=== PATIENT | female | born 1945 | race Caucasian/White ===

== ENCOUNTER 2018-05-08 19:20 | Inpatient (IN) | payer MEDICARE, OTHER ==
[~2018-05-08] VITALS: Ht 160 cm; Wt 58.4 kg
[~2018-05-08 19:20] MED LIST: ASPIR 8181 MG PO; CLONAZEPAM 0.50.5 M1 PO; CLONIDINE0.1 PO; COUMADIN 5 MG TA5 M1 PO; DILTIAZEM 24HR180 M2 PO; FISH OIL 1,001000 M2 PO; GABAPENTIN600 M1 PO; HYDROCODONE-AP1 EAC6 PO; HYDROXYCHLOROQ200 M1 PO; IBUPROFEN 200200 M1 PO; LISINOPRIL/HCTZ PO; MAGNESIUM OXID400 MG PO; NORCO 5-325 TA1 EACH PO; OXYCODONE PO; PERCOCET 5-3251 EACH PO; PERCOCET PO; PREDNISONE 2.52.5 M1 PO; PREDNISONE 5 MG5 M1 PO; ROBAXIN 750 MG750 M1 PO; VITAMIN B12-FO1 EAC1 PO; VITAMIN D31000 UNI2 PO; XARELTO15 MG PO; XARELTO20 MG PO; [UNRECOGNIZED DRUG - OTHER] PO
[2018-05-08 19:52] VITALS: BP 111/77
[2018-05-08 21:02] LABS: ABSOLUTE BASOPHILS 0.1 thou/uL (0.0-0.2); ABSOLUTE EOSINOPHILS 0.1 thou/uL (0.0-0.7); ABSOLUTE LYMPHOCYTES 1.2 thou/uL (0.8-5.3); ABSOLUTE MONOCYTES 0.6 thou/uL (0.0-1.2); ABSOLUTE NEUTROPHILS 9.1 thou/uL (1.6-8.1); BASOPHILS 0.9 %; EOSINOPHILS 0.7 %; HEMATOCRIT 39.1 % (37.0-47.0); HEMOGLOBIN 13.5 gm/dL (12.0-15.0); LYMPHOCYTES 10.7 %; MCH 32.8 pg (26.0-34.0); MCHC 34.4 g/dL (28.0-37.0); MCV 95.4 fL (80.0-100.0); MONOCYTES 5.4 %; NUCLEATED RBCS 0 /100WBC; PLATELET COUNT* 173 thou/uL (150-400); POLYS 82.3 %; RDW-CV 13.9 % (10.5-14.5)
[2018-05-08 21:08] LABS: ANION GAP 8 mmol/L (7-16); BUN 16 mg/dL (7-18); CALCIUM 9.3 mg/dL (8.5-10.1); CHLORIDE 102 mmol/L (98-107); CO2 29 mmol/L (21-32); GLUCOSE 118 mg/dL (70-99); POTASSIUM 4.3 mmol/L (3.5-5.1); SODIUM 139 mmol/L (136-145)
[2018-05-08 21:20] LABS: ALBUMIN 3.3 g/dL (3.4-5.0); ALKALINE PHOSPHATASE 93 U/L (46-116); SGOT 23 U/L (15-37); SGPT 22 U/L (30-65); TOTAL BILIRUBIN 0.3 mg/dL (<0.1-1.0); TOTAL PROTEIN 6.8 g/dL (6.4-8.2); TROPONIN-I LEVEL <0.06 ng/mL (<0.06)
[2018-05-08 22:54] LABS: URINE BILIRUBIN NEGATIVE (Negative); URINE BLOOD NEGATIVE (Negative); URINE CLARITY CLEAR; URINE COLOR YELLOW; URINE GLUCOSE-RANDOM NEGATIVE (Negative); URINE KETONES NEGATIVE (Negative); URINE LEUKOCYTES-REFLEX NEGATIVE (Negative); URINE NITRITE-REFLEX NEGATIVE (Negative); URINE PROTEIN NEGATIVE (Negative); URINE UROBILINOGEN 0.2 E.U./dl (0.2-1.0)
[2018-05-08 23:49] LABS: APTT 30.4 Seconds (25.0-31.3); PROTIME 10.6 Seconds (9.20-11.50)
[2018-05-09] VITALS (7 sets, daily range): BP systolic 95–137; BP diastolic 47–68
[2018-05-09] MEDS ORDERED: LISINOPRIL20 MG PO (11:14)
[2018-05-09] MEDS ORDERED: VALIUM5 MG PO (11:15)
[2018-05-10] VITALS: BP 109/61
[2018-05-10 04:53] VITALS: BP 103/55
[2018-05-10 04:54] LABS: CALCIUM 8.6 mg/dL (8.5-10.1); CREATININE 0.7 mg/dL (0.6-1.3); POTASSIUM 3.7 mmol/L (3.5-5.1)
[2018-05-10 05:04] LABS: HEMATOCRIT 32.4 % (37.0-47.0); MCH 32.7 pg (26.0-34.0); MCV 96.1 fL (80.0-100.0); MPV 9.4 fl. (7.2-11.1); RBC 3.37 mil/uL (4.20-5.00); RDW-CV 14.4 % (10.5-14.5); WBC 6.7 thou/uL (4.0-11.0)
[2018-05-10 07:30] VITALS: BP 115/66
[2018-05-10] MEDS ORDERED: XARELTO20 MG PO (07:45)
[2018-05-10] MEDS ORDERED: XARELTO15 MG PO (07:45)
[2018-05-10] MEDS ORDERED: NORCO 5-325 TA1 EACH PO (07:49)
[2018-05-10 11:09] VITALS: BP 115/66
--- NOTE | 2018-05-10 14:47 | EKG ---
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1945 Requested By: Eliane Malagon Order Number: [id number] MD: Fahad Varner Measurements Intervals [place] Rate: 78 P: -1 GA: 124 QRS: 1 QRSD: 97 T: 114 QT: 380 QTc: 433 Interpretive Statements Sinus rhythm Nonspecific T abnormalities, lateral leads Compared to ECG 11/02/2015 12:14:23 T-wave abnormality now present Electronically Signed On 05-10-2018 14:47:35 KNOT TIER by Fahad Varner [email or web address] <ELECTRONICALLY SIGNED> By: Fahad Varner MD, [facility] 05/10/18 1447 2353 2353 Fahad Varner MD, [facility] /EPI
== END 2018-05-10 12:27 | disposition home or self-care (01) | DRG 300 ==
LOC: M.ERS 19:20 → M.2W 22:57 → M.TBA-ER 22:57 → M.2W 05-09 00:04
PROVIDERS: Internal Medicine; Physician Assistant; ADMIT Internal Medicine
DX: I82.411 Acute embolism and thrombosis of right femoral vein (principal); E44.1 Mild protein-calorie malnutrition; D68.59 Other primary thrombophilia; I82.431 Acute embolism and thrombosis of right popliteal vein; G43.909 Migraine, unspecified, not intractable, without status migrainosus; M32.9 Systemic lupus erythematosus, unspecified; I25.10 Atherosclerotic heart disease of native coronary artery without angina pectoris; I73.9 Peripheral vascular disease, unspecified; I12.9 Hypertensive chronic kidney disease with stage 1 through stage 4 chronic kidney disease, or unspecified chronic kidney disease; N18.2 Chronic kidney disease, stage 2 (mild); M81.0 Age-related osteoporosis without current pathological fracture; Z90.49 Acquired absence of other specified parts of digestive tract; I25.2 Old myocardial infarction; Z95.5 Presence of coronary angioplasty implant and graft; Z88.2 Allergy status to sulfonamides; Z91.040 Latex allergy status; Z82.49 Family history of ischemic heart disease and other diseases of the circulatory system; Z68.22 Body mass index [BMI] 22.0-22.9, adult; Z86.711 Personal history of pulmonary embolism; Z87.81 Personal history of (healed) traumatic fracture

== ENCOUNTER → 2018-06-24 | Outpatient (CLI) | payer MEDICARE, OTHER ==
[~2018-06-24] MED LIST changes: +LISINOPRIL20 MG PO; +VALIUM5 MG PO
== END ==
LOC: M.ULTRA 09:29
DX: M79.604 Pain in right leg (principal)

== ENCOUNTER → 2018-12-02 | Outpatient (CLI) | payer MEDICARE, OTHER | LOC: M.RAD 15:21 | DX: M48.54XA Collapsed vertebra, not elsewhere classified, thoracic region, initial encounter for fracture (principal); M41.85 Other forms of scoliosis, thoracolumbar region; M48.02 Spinal stenosis, cervical region; Z88.2 Allergy status to sulfonamides ==

== ENCOUNTER → 2018-12-06 | Outpatient (CLI) | payer MEDICARE, OTHER | LOC: M.ULTRA 08:00 | DX: K80.20 Calculus of gallbladder without cholecystitis without obstruction (principal); R16.0 Hepatomegaly, not elsewhere classified ==

== ENCOUNTER 2018-12-09 12:42 | Inpatient (IN) | payer MEDICARE, OTHER ==
[~2018-12-09] VITALS: Ht 144.8 cm; Wt 59.0 kg
--- NOTE | ~2018-12-09 | PROC ---
[address] [address] PROCEDURE REPORT Name: SARAH CAMPBELL Room: [address] IN .R.#: [id number] Admission: 12/09/18 Attend Phys: Yfn Jimenez MD Discharge: 12/16/18 Date of : 47 Report #: [id number] THIS REPORT FOR: //name// For GI report, please see the Provation report in Perceptive 7 content. By: 1150Medical Records Staff INGE /DANITA
--- NOTE | ~2018-12-09 | CON ---
[address] [address] CONSULTATION Name: SARAH CAMPBELL Room: [address] IN .R.#: [id number] Admission: 12/09/18 Attend Phys: Yfn Jimenez MD Discharge: Date of : 47 Report #: [id number] THIS REPORT FOR: //name// CC: Yfn Bishop MD DICTATED BY: Kayla Phan [facility] DATE OF SERVICE: 12/10/2018 Please note at the time of this dictation, the patient was seen and physically examined by myself. REASON FOR CONSULTATION: Abdominal pain and change in bowel habits. HISTORY OF PRESENT ILLNESS: This is a pleasant 73-year-old female who presented to her PCP's office with increasing upper and lower abdominal pain and cramping associated with "yellow watery" diarrhea for the last 2 weeks, which was worsening in the amount that she was going prior to that. She states that she had a tendency towards constipation and had to take some magnesium for that, otherwise her bowels were soft and formed up until 2 weeks ago. She was also having some pain in her rectum when having a bowel movement as well, which she rated a 9/10. She does have a history of having a colonoscopy back in 2004 when she was told that she had colon polyps and had never had one since that time either. She also describes that she has had, over the last year, increased incidence of acid reflux which she has been taking Tums mainly at night for. Her last EGD was back in 2006 prior to her hiatal hernia repair. Otherwise, she denies any fevers or chills, any weight changes, recent travel, or any sick contacts and that her weight has been fairly stable. She does take prednisone, which has increased her appetite. ALLERGIES: LATEX AND SULFA. MEDICATIONS: From home include Plaquenil, vitamin D3, potassium, vitamin B12, prednisone, lisinopril, Xarelto, Valium, and hydrocodone. PAST MEDICAL HISTORY: History of heart disease, DE, CAD, hypertension, lung disease, history of a PE with pulmonary infarct, vascular disease, peripheral vascular disease, venous insufficiency, history of DVT, and lupus, in which she sees a clerical methods analyst. She has had a right lower extremity PE, right lung with infarct and developed some pancreatitis. History of her DE and colon polyps. She has had acid reflux, osteoporosis, lupus, and migraines. She has had sacral and pelvic fractures and also her L spine vertebral fractures [place] [address] CONSULTATION Name: SARAH CAMPBELL Room: [address] IN [facility]#: [id number] Admission: 12/09/18 Attend Phys: Yfn Jimenez MD Discharge: Date of : 47 Report #: [id number] PAST SURGICAL HISTORY: Bilateral rotator cuff repair, coronary artery stenting x 2, appendectomy, tonsil and adenoidectomy, angioplasty, hiatal hernia repair in 2006, and her history of EGD and colonoscopy in the past. FAMILY HISTORY: Negative for any GI or female cancers. SOCIAL HISTORY: Denies any alcohol, tobacco, or illegal drug use. REVIEW OF SYSTEMS: Twelve-point review of systems is essentially negative except what is mentioned in the history of present illness. PHYSICAL EXAMINATION: VITAL SIGNS: Temperature 36.9, pulse 70, respirations 14, and blood pressure 163/83. HEART: Regular rate and rhythm. LUNGS: Clear. ABDOMEN: Soft, positive bowel sounds in all 4 quadrants, somewhat hyperactive with diffuse tenderness noted throughout, more so in the right upper quadrant after her recent liver biopsy this a.m. LABORATORY DATA: Hemoglobin is 12.7, white count is 11.7, and platelets 236. PT is 12.1 and INR is 1.2. GFR is 98. Total bilirubin 0.4, alkaline phosphatase 119, ALT 30, and AST is 28. CA-125 is 56.6. Rest labs are pending. RADIOLOGIC DATA: CT of the abdomen and pelvis shows hepatic lesions scattered likely metastatic in nature, also periaortic, lashon hepatis, right lower quadrant mesenteric lymphadenopathy noted. IMPRESSION: 1. Abdominal pain. 2. Change in bowel habits. 3. Abnormal CT noted liver lesions and some mesenteric lymphadenopathy in the right lower quadrant. 4. Gastroesophageal reflux disease, ongoing for the last year. 5. History of colon polyps, 2004. 6. Anticoagulant therapy, Xarelto, history of deep vein thrombosis and pulmonary embolism. PLAN: 1. EGD and colonoscopy with Dr. Carvalho tomorrow. 2. Clear liquid diet. 3. Status post liver biopsy today. 4. Xarelto continues to be on hold, last dose was Sunday. 5. Further recommendations to be made once the procedure [place] [address] CONSULTATION Name: MINOR,SARAH LITTLEA Room: [address] IN [facility].#: [id number] Admission: 12/09/18 Attend Phys: Yfn Jimenez MD Discharge: Date of : 47 Report #: [id number] Thank you for allowing us to participate in this patient's care. Please do not hesitate to call with any questions in regard to this consult. By: 1111 215Fernando Carvalho DO /adelina
[2018-12-09 12:52] VITALS: BP 174/93
[2018-12-09 13:45] LABS: MCH 32.5 pg (26.0-34.0); MCHC 34.3 g/dL (28.0-37.0); MCV 94.7 fL (80.0-100.0); MPV 8.7 fl. (7.2-11.1); NUCLEATED RBCS 0 /100WBC; PLATELET COUNT* 251 thou/uL (150-400); RBC 4.33 mil/uL (4.20-5.00); WBC 13.9 thou/uL (4.0-11.0)
[2018-12-09 13:53] LABS: ANION GAP 10 mmol/L (7-16); BUN 24 mg/dL (7-18); CALCIUM 8.8 mg/dL (8.5-10.1); CHLORIDE 103 mmol/L (98-107); CO2 26 mmol/L (21-32); CREATININE 0.8 mg/dL (0.6-1.3); GLUCOSE 101 mg/dL (70-99); POTASSIUM 3.6 mmol/L (3.5-5.1); SODIUM 139 mmol/L (136-145)
[2018-12-09 13:55] LABS: APTT 45.5 Seconds (25.0-31.3); INR 1.2; PROTIME 12.1 Seconds (9.20-11.50)
[2018-12-09 14:03] LABS: ALKALINE PHOSPHATASE 143 U/L (46-116); LIPASE 180 U/L (73-393); SGOT 32 U/L (15-37); SGPT 35 U/L (30-65); TOTAL BILIRUBIN 0.4 mg/dL (<0.1-1.0); TOTAL PROTEIN 6.5 g/dL (6.4-8.2); TROPONIN-I LEVEL <0.06 ng/mL (<0.06)
[2018-12-09 14:09] LABS: ABSOLUTE LYMPHOCYTES 0.4 thou/uL (0.8-5.3); ABSOLUTE MONOCYTES 0.4 thou/uL (0.0-1.2); ABSOLUTE NEUTROPHILS 13.1 thou/uL (1.6-8.1); PLATELET ESTIMATE ADEQUATE
[2018-12-09 15:20] LABS: URINE BILIRUBIN NEGATIVE (Negative); URINE BLOOD NEGATIVE (Negative); URINE CLARITY CLEAR; URINE COLOR YELLOW; URINE GLUCOSE-RANDOM NEGATIVE (Negative); URINE KETONES NEGATIVE (Negative); URINE LEUKOCYTES-REFLEX NEGATIVE (Negative); URINE NITRITE-REFLEX NEGATIVE (Negative); URINE PROTEIN NEGATIVE (Negative); URINE SPECIFIC GRAVITY <= 1.005 (1.005-1.030); URINE UROBILINOGEN 0.2 E.U./dl (0.2-1.0)
[2018-12-09 15:47] VITALS: BP 148/77
--- NOTE | 2018-12-09 16:25 | EKG ---
[place] [address] ELECTROCARDIOGRAM REPORT Name: SARAH CAMPBELL Room: [address] ADM IN ..#: [id number] Admission: 12/09/18 Attend Phys: Yfn Jimenez MD Discharge: Date of : 47 Report #: [id number] THIS REPORT FOR: //name// [facility] ED Test Date: 2018-12-09 Test Time: 14:31:21 Pat Name: SARAH CAMPBELL Department: Room: [facility] Gender: F Pet Handler: : 1945 Requested By: Dea Torres Order Number: [id number] MD: Param Low Measurements Intervals [place] Rate: 82 P: -17 SC: 102 QRS: 0 QRSD: 98 T: 150 QT: 401 QTc: 469 Interpretive Statements Sinus arrhythmia Short SC interval Probable anteroseptal infarct, old Abnormal T, consider ischemia, lateral leads Baseline wander in lead(s) II,III,aVF Compared to ECG 05/08/2018 23:53:49 Short SC interval now present Myocardial infarct finding now present T-wave abnormality still present Electronically Signed On 12-09-2018 16:25:06 CDT by Param Low [email or web address] <ELECTRONICALLY SIGNED> By: Param Low MD, [facility] 12/09/18 1625 1431 1431 Param Low MD, [facility] /EPI
[2018-12-09 16:26] VITALS: BP 182/82
--- NOTE | 2018-12-09 18:03 | NUR ---
REVIEWED STUDENT NURSE CHARTING, AGREE. PT A&Ox4. VITALS STABLE. IV PATENT. NAUSEA CONTROLLED WITH ZOFRAN. MILD PAIN, DENIED PAIN MEDS. UP WITH ASSIST. CALL LIGHT WITHIN REACH. FALL PRECAUTIONS IN PLACE. WILL CONTINUE TO MONITOR.
[2018-12-09 19:45] VITALS: BP 148/72
--- NOTE | 2018-12-09 22:21 | NUR ---
INITAL ASSESMENT COMPLETED AT 194. PT PLEASANT AND COOPERATIVE. PT INCONTINENT OF STOOL AT THAT TIME. PT REPORTED ABDOMINAL PAIN AND MILD NAUSEA. PT GIVEN PRN FENTANYL AND ZOFRAN WITH GOOD RESULTS. CALL LIGHT IN REACH, PT DEMONSTRATES PROPER USE.
[2018-12-10] VITALS (14 sets, daily range): BP systolic 121–184; BP diastolic 51–89
[2018-12-10 04:27] LABS: ABSOLUTE BASOPHILS 0.1 thou/uL (0.0-0.2); ABSOLUTE LYMPHOCYTES 1.2 thou/uL (0.8-5.3); ABSOLUTE MONOCYTES 1.1 thou/uL (0.0-1.2); ABSOLUTE NEUTROPHILS 9.4 thou/uL (1.6-8.1); BASOPHILS 0.5 %; EOSINOPHILS 0.4 %; HEMATOCRIT 37.6 % (37.0-47.0); HEMOGLOBIN 12.7 gm/dL (12.0-15.0); MCH 32.7 pg (26.0-34.0); MCHC 33.9 g/dL (28.0-37.0); MCV 96.5 fL (80.0-100.0); MONOCYTES 9.2 %; MPV 9.1 fl. (7.2-11.1); NUCLEATED RBCS 0 /100WBC; PLATELET COUNT* 236 thou/uL (150-400); POLYS 79.9 %; RDW-CV 12.7 % (10.5-14.5); WBC 11.7 thou/uL (4.0-11.0)
[2018-12-10 04:53] LABS: ALBUMIN 2.5 g/dL (3.4-5.0); CALCIUM 8.5 mg/dL (8.5-10.1); CREATININE 0.6 mg/dL (0.6-1.3); POTASSIUM 3.7 mmol/L (3.5-5.1); TOTAL BILIRUBIN 0.4 mg/dL (<0.1-1.0); TOTAL PROTEIN 5.6 g/dL (6.4-8.2)
--- NOTE | 2018-12-10 08:27 | NUR ---
REVIEWED STUDENT NURSE CHARTING AND AGREE.
[2018-12-10 10:11] LABS: CA 125 56.6 U/mL (0.0-38.1)
--- NOTE | 2018-12-10 15:35 | NUR ---
cm completed initial assessment to discuss d/c planning. pt a&ox4, pt states she is "very active." pt lives w/son, Guillermo. pt son Jong was present during assessment. pt states she has w/c that she doesnt use, and a walker that she uses to use RR @ night and she has a cane. pt has hx w/[facility], she has used 2x w/i the last 2yrs. pt was pleased w/care provided and would like to use them again need be. pt has no hx w/snf. cm to remain available to assist as needed.
--- NOTE | 2018-12-10 16:40 | NUR ---
PT A&Ox4. VITALS STABLE. PAIN CONTROLLED WITH FENTANYL AND OXY IR. NAUSEA CONTROLLED WITH ZOFRAN. UP STAND BY. IV PATENT. CLEAR LIQUID DIET. WORKING ON FINISHING BOWEL PREP. HAVING LIQUID STOOLS. CALL LIGHT WITHIN REACH. WILL CONTINUE TO MONITOR.
[2018-12-11] VITALS: BP 148/73
[2018-12-11 04:32] LABS: ABSOLUTE BASOPHILS 0.1 thou/uL (0.0-0.2); ABSOLUTE LYMPHOCYTES 1.2 thou/uL (0.8-5.3); ABSOLUTE MONOCYTES 1.2 thou/uL (0.0-1.2); ABSOLUTE NEUTROPHILS 9.9 thou/uL (1.6-8.1); BASOPHILS 0.5 %; EOSINOPHILS 0.2 %; HEMOGLOBIN 14.5 gm/dL (12.0-15.0); LYMPHOCYTES 9.7 %; MCH 32.7 pg (26.0-34.0); MCHC 33.8 g/dL (28.0-37.0); MCV 96.7 fL (80.0-100.0); MONOCYTES 9.7 %; MPV 9.7 fl. (7.2-11.1); NUCLEATED RBCS 0 /100WBC; PLATELET COUNT* 275 thou/uL (150-400); POLYS 79.9 %; RBC 4.44 mil/uL (4.20-5.00); RDW-CV 13.1 % (10.5-14.5); WBC 12.3 thou/uL (4.0-11.0)
[2018-12-11 04:47] LABS: ALBUMIN 2.9 g/dL (3.4-5.0); CALCIUM 9.2 mg/dL (8.5-10.1); CREATININE 0.7 mg/dL (0.6-1.3); POTASSIUM 3.4 mmol/L (3.5-5.1); TOTAL BILIRUBIN 0.4 mg/dL (<0.1-1.0); TOTAL PROTEIN 6.5 g/dL (6.4-8.2)
[2018-12-11 07:35] LABS: CA 27.29-BREAST CARCINOMA AG 11.8 U/mL (0.0-38.6)
[2018-12-11 08:45] VITALS: BP 178/98
[2018-12-11 09:40] VITALS: BP 148/73
[2018-12-11 16:00] VITALS: BP 183/103
--- NOTE | 2018-12-11 16:53 | NUR ---
PATIENT ALERT AND ORIENTED X 4. VITAL SIGNS STABLE ON ROOM AIR. UP WITH ASSISTANCE TO THE BEDSIDE COMODE. IV PATENT WITH FLUIDS INFUSING. PAIN AND NAUSEA BEING MANAGED WITH PO AND IV MEDICATION. TOLERATING HEART HEALTHY DIET. K-PAD IN PLACE TO BACK. HOURLY ROUNDS MAINTAINED THROUGHOUT THE SHIFT. CALL LIGHT WITHIN REACH. NURSING WILL CONTINUE TO MONITOR.
[2018-12-11 17:30] VITALS: BP 160/90
[2018-12-11 21:00] VITALS: BP 167/88
[2018-12-12] VITALS: BP 173/88
[2018-12-12 04:19] LABS: HEMATOCRIT 38.9 % (37.0-47.0); MCH 32.1 pg (26.0-34.0); MCHC 33.5 g/dL (28.0-37.0); MCV 95.9 fL (80.0-100.0); MPV 9.4 fl. (7.2-11.1); RBC 4.06 mil/uL (4.20-5.00); RDW-CV 12.9 % (10.5-14.5); WBC 12.2 thou/uL (4.0-11.0)
--- NOTE | 2018-12-12 05:00 | NUR ---
PT ALERT AND ORIENTED. VITALS STABLE EXCEPT HIGH BP. MEDS GIVEN ORDERED. PAIN MANAGED WITH OXY IR. ZOFRAN GIVEN FOR NAUSEA. PT COMPLAINT OF HEARTBURN, RESOLVED WITH SNACKS. HEATING PAD IN PLACE FOR SHOULDER PAIN. HOURLY ROUNDING COMPLETED. WILL CONTINUE TO MONITOR.
[2018-12-12 05:17] LABS: ALBUMIN 2.5 g/dL (3.4-5.0); CALCIUM 8.7 mg/dL (8.5-10.1); CREATININE 0.7 mg/dL (0.6-1.3); MAGNESIUM 2.1 mg/dL (1.8-2.4); POTASSIUM 4.1 mmol/L (3.5-5.1); TOTAL BILIRUBIN 0.3 mg/dL (<0.1-1.0); TOTAL PROTEIN 5.4 g/dL (6.4-8.2)
[2018-12-12 09:05] VITALS: BP 154/89
[2018-12-12 12:06] LABS: CALCITONIN 2.4 pg/mL (0.0-5.0)
--- NOTE | 2018-12-12 19:00 | NUR ---
PATIENT PLEASANT AND COOPERATIVE W/ ASSESS AND CARES. C/O RT SHOULDER PAIN, KPAD TO AREA. FAMILY MEMBERS IN TO VISIT THIS AFTERNOON. UP TO BR, ENC TO USE FWW. 24HR UA INITIATED AT 0800, RESTARTED AT 1900. PATIENT EDUCATED ON 24HR UA COLLECTION PROCESS AND TESTING. IV CATH SITE NOTED WNL. ~TJRN
[2018-12-12 21:06] VITALS: BP 180/83
--- NOTE | 2018-12-13 06:28 | NUR ---
Pt HAD SEVERE PAIN IN RIGHT SHOULDER THROUGHOUT SHIFT. TRIED A KPAD. TRIED A LIDOCAINE PATCH. GAVE PRN OXYCODONE 5 MG TWICE. REPOSITIONED PATIENT AND ADDED PILLOWS FOR COMFORT. SHE COULD NOT GET COMFORTABLE. HER BLOOD PRESSURE WAS ELEVATED AT 180/83. HYDRALAZINE WAS GIVEN ORDERED AROUND 2144. SHE REPORTS ALL HER PAIN IN HER SHOULDER ON THE RIGHT. SHE WAS CRYING AND IN DISTRESS OVER THE PAIN.
[2018-12-13 07:46] VITALS: BP 172/94
--- NOTE | 2018-12-13 10:38 | NUR ---
Following for d/c planning needs. Reviewed chart and spoke with physician, nurse and pt. Tentative plan is for pt to d/c home with home health on Sunday. Spoke with pt and she wants to use [facility] again. Notified [facility]. Will need to notify [facility] of d/c. [facility]) [phone]; fax [phone]
--- NOTE | 2018-12-13 11:20 | NUR ---
REVIEWED GUN STOCK MAKER CHARTING AND AGREE
--- NOTE | 2018-12-13 18:41 | NUR ---
PT A&Ox4. VITALS STABLE. PAIN CONTROLLED WITH NORCO AND TRAMADOL. HEATING PAD FOR SHOULDER PAIN. NAUSEA CONTROLLED WITH ZOFRA. TOLERATING FOOD. UP STAND BY. CALL LIGHT WITHIN REACH. WILL CONTINUE TO MONITOR.
[2018-12-13 20:00] VITALS: BP 153/81
--- NOTE | 2018-12-14 05:22 | NUR ---
PT SLEPT MOST OF SHIFT. ASSESSMENT DOCUMENTED. MEDS GIVEN PER E-MAR. IV PATENT. PT REPORTS PAIN IN HER RIGHT ARM/SHOULDER. PAIN MEDS GIVEN PER E-MAR. HEATING PAD IN PLACE. PT UP TO BATHROOM WITH SBA. WILL CONTINUE WITH PLAN OF CARE.
[2018-12-14 08:30] VITALS: BP 162/110
--- NOTE | 2018-12-14 18:38 | NUR ---
PATIENT ALERT AND ORIENTED X 4. VITAL SIGNS STABLE ON ROOM AIR. UP WITH ASSISTANCE TO THE BATHROOM. IV PATENT AND SALINE LOCKED. PAIN BEING MANAGED WITH PO MEDICATION. DENIES NAUSEA. PRN HYDRALAZINE GIVEN FOR ELEVATED PRESSURES. RECHECK WAS 169/80. HOURLY ROUNDS MAINTAINED THROUGHOUT THE SHIFT. CALL LIGHT WITHIN REACH. NURSING WILL CONTINUE TO MONITOR.
[2018-12-14 22:01] VITALS: BP 142/73
[2018-12-14 23:10] VITALS: BP 142/73
[2018-12-15 00:33] VITALS: BP 148/92
--- NOTE | 2018-12-15 06:02 | NUR ---
PATIENT WAS HAVING PAIN ISSUES IN HER RIGHT SHOULDER. SHE WAS USING A KPAD ALL NIGHT AND DID GET SOME PAIN MEDICATION. SHE WAS ABLE TO SLEEP MOST OF THE SHIFT. SHE IS ABLE TO AMBULATE TO THE BATHROOM. NO NEW OR WORSENING PAIN ISSUES
[2018-12-15 08:45] VITALS: BP 167/97
[2018-12-15 16:34] VITALS: BP 171/93
--- NOTE | 2018-12-15 18:19 | NUR ---
PATIENT ALERT AND ORIENTED X 4. VITAL SIGNS STABLE ON ROOM AIR. UP WITH ASSISTANCE TO THE BATHROOM. IV PATENT AND SALINE LOCKED. PAIN BEING MANAGED WITH PO MEDICAITION. HEATING PAD (KPAD) IN PLACE TO RIGHT SHOULDER. DENIES NAUSEA. PRN HYDRALAZINE GIVEN. HOURLY ROUNDS MAINTAINED THROUGHOUT THE SHIFT. CALL LIGHT WITHIN REACH. NURSING WILL CONTINUE TO MONITOR.
[2018-12-15 21:19] VITALS: BP 157/87
[2018-12-16 03:30] VITALS: BP 133/73
--- NOTE | 2018-12-16 05:59 | NUR ---
PATIENT NEEDED SOME PAIN MEDS FOR SLEEP AND WAS GIVEN. KEPT KPAD ON SHOULDER ALL SHIFT. SHE WOKE AND REQUESETED MORE PAIN MEDS AT 0500. HER BLOOD PRESSURE HAD BEEN AN ISSUE. HER LAST BP RECORDED WAS AT 0330 AND WAS 133/73. I DID NOT HAVE TO ADMINISTER HYDRALAZINE THIS EVENING LIKE PRIOR SHIFTS. SHE WAS ABLE TO REST WITH PAIN MEDS.
[2018-12-16 07:44] VITALS: BP 167/87
--- NOTE | 2018-12-16 08:45 | NUR ---
REVIEWED STUDENT NURSE CHARTING AND AGREE
[2018-12-16] MEDS ORDERED: LIDOPATCH1 EACH TOP (09:40)
[2018-12-16] MEDS ORDERED: PRINIVIL40 MG PO (09:40)
[2018-12-16] MEDS ORDERED: HYDROCODON-ACE1 EAC7 PO (09:40)
[2018-12-16] MEDS ORDERED: TRAMADOL 50 MG50 MG PO (09:40)
[2018-12-16] MEDS ORDERED: PREDNISONE 10 M10 MG PO (09:40)
[2018-12-16] MEDS ORDERED: PANTOPRAZOLE SO40 M1 PO (09:40)
[2018-12-16 14:11] VITALS: BP 167/87
[2018-12-16 14:17] VITALS: BP 167/87
--- NOTE | 2018-12-16 14:20 | NUR ---
Following for d/c planning needs. Reviewed chart and spoke with nurse, physician and pt. Pt plans on returning home today and is agreeable with home health. Notified [facility] of d/c. No other needs identified.
--- NOTE | 2018-12-16 15:39 | NUR ---
PT DISCHARGED TO HOME WITH HOME HEALTH AND LEFT UNIT AT 1537 WITH NURSING STAFF AND SON BY WHEELCHAIR. IV OUT. PAIN CONTROLLED. PT STABLE UPON DISCHARGE. PAPER SCRIPTS AND CARE NOTES GIVEN. PERSONAL BELONGINGS SENT WITH PT.
--- NOTE | 2018-12-16 21:05 | PATH ---
[address] [address] PATHOLOGY RPT PROCEDURE Name: DIANA CAMPBELL Room: [address] IN .R.#: [id number] Admission: 12/09/18 Date of : 47 Discharge: 12/16/18 Report #: [id number] Path Case #: [id number] [facility] Accession Number: [id number] . 01 Material submitted: . liver - LIVER, MULTIPLE LIVER MASSES . 01 Clinical history: . Multiple liver masses Mets to liver 3.93 x 3.29 x 3.12 cm . 02 Diagnosis: Liver biopsy, "liver, multiple liver masses": - Poorly differentiated carcinoma with neuroendocrine features. See comment. (KALLIE:jose; 12/16/2018) MBBradley/12/16/2018 . 02 Comment: The liver biopsy reveals poorly differentiated carcinoma with small cells and appearance of neuroendocrine features. Immunoperoxidase stains reveal the tumor to be S-100 negative, CK7 negative, CK20 negative, TTF-1 negative, CD57 negative, chromogranin negative, NITISH positive, p16 positive, p40 negative, synaptophysin positive, ER negative, vimentin negative, Ki67 almost 80-90%, AE1/AE3 positive, CD56 positive, neuron-specific enolase positive, CK19 positive, CEA monoclonal negative, thrombomodulin negative, WT-1 negative. . This case was originally assigned to Dr. Zeyad Washington who discussed preliminary findings to Dr. Robert Carvalho at 12:20 on 12/12/18, and at midday on 12/13/18. This case was also reviewed by Dr. Elise Arroyo. Based on the immunoperoxidase stains of positive synaptophysin, CD56, neuron-specific enolase, and high Ki67, this is a high-grade neuroendocrine carcinoma. . This patient also has a biopsy of a proximal ascending colon polyp part C which also is a neuroendocrine carcinoma high-grade. The surgical number is [id number]. The histological appearance of the liver biopsy tumor and the larger proximal ascending colon polyp and immunoperoxidase profile are similar. Thus it is likely that these metastasis are from the tumor originating from the larger proximal ascending colon polyp. However other primary sites cannot be entirely excluded. (SHA:jose; 12/16/2018) . 02 Electronically signed: . Justo De La Rosa MD, [place] [address] PATHOLOGY RPT PROCEDURE Name: DIANA CAMPBELL Room: [address] IN ..#: [id number] Admission: 12/09/18 Date of : 47 Discharge: 12/16/18 Report #: [id number] Path Case #: [id number] NPI- [id number] . 01 Gross description: . Received in formalin labeled "Minor, Diana, liver Bx mass," are six needle core segments of stephenson soft tissue ranging from 0.7 to 2.0 cm in length and measuring 0.1 cm each in diameter. The specimen is submitted entirely in cassettes A1 through A3. (DAC; 12/11/2018) XDC/XDC . 02 Pathologist provided ICD-10: C22.9 . 02 CPT . 009910, Q70740, R76382, 550474 Specimen Comment: A courtesy copy of this report has been sent to Specimen Comment: [phone], , , . Specimen Comment: Report sent to ,DR RODRIGUEZ, DR. YUEN, DR GARNER Specimen Comment: / DR MADRID Performed at: [address], [place], [place] [id number] MD Julian Arellano MD Phone: [phone] Performed at: 02 [facility] [address], [place], [place] [id number] MD Zeyad Washington MD Phone: [phone]
--- NOTE | 2018-12-16 21:05 | PATH ---
[address] [address] PATHOLOGY RPT PROCEDURE Name: DIANA CAMPBELL Room: [address] IN M.R.#: [id number] Admission: 12/09/18 Date of : 47 Discharge: 12/16/18 Report #: [id number] Path Case #: [id number] [facility] Accession Number: [id number] . 01 Material submitted: . PART A: colon - RANDOM COLON BIOPSIES PART B: colon - PROXIMAL ASCENDING COLON POLYP - SMALL. Modifiers: proximal, ascending PART C: colon - PROXIMAL ASCENDING COLON POLYP - LARGE. Modifiers: proximal, ascending PART D: colon - MID-ASCENDING COLON POLYP. Modifiers: mid, ascending PART E: colon - PROXIMAL TRANSVERSE COLON POLYP. Modifiers: transverse, proximal . 01 Clinical history: . History of diarrhea . 02 Diagnosis: A. Colonic mucosa "random colon biopsies": - No diagnostic changes. - There is no evidence of acute cryptitis, granulomas, adenomatous change or malignancy. . B. Colonic mucosa "proximal ascending colon polyp biopsy": - Tubular adenoma. - There is no evidence of high grade dysplasia or malignancy. . C. Colonic mucosa "proximal ascending colon polyp": - High grade neuroendocrine carcinoma measuring 0.8 cm in greatest dimension arising in the background of tubulovillous adenoma. - Neuroendocrine carcinoma extends to the cauterized margin. - See comment. . D. Colonic mucosa "mid ascending colon polyp biopsy": - Minute fragment suggestive of a tubular adenoma. - There is no evidence of high grade dysplasia or malignancy. . E. Colonic mucosa "proximal transverse colon polyp biopsy": - Tubular adenoma. - There is no evidence of high grade dysplasia or malignancy. LBQ/12/16/2018 . 02 Comment: C. Immunoperoxidase stains reveal CD56 positive, CD57 positive, neuron specific enolase positive, synaptophysin positive, Ki-67 almost 80-90%, chromogranin negative and NITISH positive. This case was originally assigned to Dr. Zeyad Washington who has reviewed the case [place] [address] PATHOLOGY RPT PROCEDURE Name: ADRIANDIANAJACKY INGRAM Room: [address] IN M.R.#: [id number] Admission: 12/09/18 Date of : 47 Discharge: 12/16/18 Report #: [id number] Path Case #: [id number] immunoperoxidase stains. This case was completed by Dr. Justo De La Rosa. This case was also reviewed by Dr. Elise Arroyo. Dr Washington also discussed this case with Dr. Jodi Alanis on 12/13/2018. (SHA/db; 12/16/2018) . 02 Electronically signed: . Justo De La Rosa MD, Pathologist NPI- [id number] . 01 Gross description: . A. Received in formalin labeled "Minor, Diana, random colon biopsies," are multiple segments of stephenson soft tissue measuring 1.5 x 0.3 x 0.1 cm in aggregate dimensions. The specimen is filtered and entirely submitted in cassette A1. . B. Received in formalin labeled "Minor, Diana, proximal ascending colon polyp-small," is a single segment of stephenson soft tissue measuring 0.4 cm in maximum dimension. The specimen is submitted entirely in cassette B1. . C. Received in formalin labeled "Minor, Diana, proximal ascending colon polyp-large," is a 1.7 x 1.2 x 1.3 cm polypoid piece of stephenson soft tissue. The margin is inked and the tissue is sectioned perpendicular to the margin and submitted entirely in cassette C1-C3. . D. Received in formalin labeled "Minor, Diana, mid-ascending colon polyp," is a single segment of stephenson soft tissue measuring 0.1 cm in maximum dimension. The specimen is entirely submitted in cassette D1. . E. Received in formalin labeled "Minor, Diana, proximal transverse colon polyp," is a single segment of stephenson soft tissue measuring 0.1 cm in maximum dimension. The specimen is entirely submitted in cassette E1. (TSD; 12/11/2018) TOB/TOB . 02 Pathologist provided ICD-10: D12.2, D3A.8, D12.3 . 02 CPT . 783862, 719417, 839036, 599279, 298490, P90084, T67884, 626504 Specimen Comment: A courtesy copy of this report has been sent to Specimen Comment: [phone], , , . Specimen Comment: Report sent to ,DR YUEN, DR RODRIGUEZ / Specimen Comment: DR MADRID Performed at: [address] [place], [place] [address] [facility] [address], [place], [place] [id number] MD Julian Arellano MD Phone: [phone] Performed at: 02 [facility] [address] [place] [address] PATHOLOGY RPT PROCEDURE Name: DIANA CAMPBELL Room: [address] IN M.R.#: [id number] Admission: 12/09/18 Date of : 47 Discharge: 12/16/18 Report #: [id number] Path Case #: [id number] [address] [place], [place] [id number] MD Zeyad Washington MD Phone: [phone]
== END 2018-12-16 15:37 | disposition home health service (06) | DRG 435 ==
LOC: M.ERS 12:42 → M.TBA-ER 14:59 → M.ORTHSURG 14:59
PROVIDERS: Family Medicine; Internal Medicine; Nurse Practitioner Family; Surgery; ADMIT Internal Medicine
PROC: 0FB13ZX Excision of Right Lobe Liver, Percutaneous Approach, Diagnostic (ICD-10-PCS; principal; 2018-12-10)
PROC: 0DBK8ZZ Excision of Ascending Colon, Via Natural or Artificial Opening Endoscopic (ICD-10-PCS; 2018-12-11)
PROC: 0DBL8ZZ Excision of Transverse Colon, Via Natural or Artificial Opening Endoscopic (ICD-10-PCS; 2018-12-11)
PROC: 0DJ08ZZ Inspection of Upper Intestinal Tract, Via Natural or Artificial Opening Endoscopic (ICD-10-PCS; 2018-12-11)
PROC: 3E023BZ Introduction of Anesthetic Agent into Muscle, Percutaneous Approach (ICD-10-PCS; 2018-12-16)
PROC: 3E0233Z Introduction of Anti-inflammatory into Muscle, Percutaneous Approach (ICD-10-PCS; 2018-12-16)
DX: C78.7 Secondary malignant neoplasm of liver and intrahepatic bile duct (principal); K57.31 Diverticulosis of large intestine without perforation or abscess with bleeding; E44.1 Mild protein-calorie malnutrition; M32.9 Systemic lupus erythematosus, unspecified; R59.1 Generalized enlarged lymph nodes; K21.9 Gastro-esophageal reflux disease without esophagitis; D12.2 Benign neoplasm of ascending colon; K64.4 Residual hemorrhoidal skin tags; K52.9 Noninfective gastroenteritis and colitis, unspecified; K44.9 Diaphragmatic hernia without obstruction or gangrene; I73.9 Peripheral vascular disease, unspecified; D12.3 Benign neoplasm of transverse colon; D17.5 Benign lipomatous neoplasm of intra-abdominal organs; R19.4 Change in bowel habit; G43.909 Migraine, unspecified, not intractable, without status migrainosus; M19.90 Unspecified osteoarthritis, unspecified site; I10 Essential (primary) hypertension; I25.10 Atherosclerotic heart disease of native coronary artery without angina pectoris; I25.2 Old myocardial infarction; Z88.2 Allergy status to sulfonamides; Z86.711 Personal history of pulmonary embolism; Z79.01 Long term (current) use of anticoagulants; Z79.899 Other long term (current) drug therapy; Z91.040 Latex allergy status; Z86.010 Personal history of colon polyps; Z86.718 Personal history of other venous thrombosis and embolism; Z87.81 Personal history of (healed) traumatic fracture; Z90.49 Acquired absence of other specified parts of digestive tract; Z95.818 Presence of other cardiac implants and grafts; Z68.28 Body mass index [BMI] 28.0-28.9, adult

== ENCOUNTER → 2018-12-24 | Outpatient (CLI) | payer MEDICARE, OTHER ==
[~2018-12-24] MED LIST changes: +CEFDINIR300 MG PO; +HYDROCODON-ACE1 EAC7 PO; +LIDOPATCH1 EACH TOP; +PANTOPRAZOLE SO40 M1 PO; +PREDNISONE 10 M10 MG PO; +PRINIVIL40 MG PO; +TRAMADOL 50 MG50 MG PO
== END ==
LOC: M.RAD 13:23
DX: I82.409 Acute embolism and thrombosis of unspecified deep veins of unspecified lower extremity (principal); I73.9 Peripheral vascular disease, unspecified; I10 Essential (primary) hypertension; I25.10 Atherosclerotic heart disease of native coronary artery without angina pectoris; M32.9 Systemic lupus erythematosus, unspecified; M81.0 Age-related osteoporosis without current pathological fracture; C79.9 Secondary malignant neoplasm of unspecified site; I70.90 Unspecified atherosclerosis; Z88.2 Allergy status to sulfonamides

== ENCOUNTER → 2018-12-27 | Outpatient (CLI) | payer MEDICARE, OTHER ==
[~2018-12-27] VITALS: Ht 152.4 cm; Wt 56.7 kg
[2018-12-27 10:02] VITALS: BP 128/66
[2018-12-27 10:46] LABS: HEMOGLOBIN 13.6 gm/dL (12.0-15.0); MCH 32.3 pg (26.0-34.0); MCV 94.8 fL (80.0-100.0); MPV 9.9 fl. (7.2-11.1); RBC 4.22 mil/uL (4.20-5.00); RDW-CV 13.7 % (10.5-14.5); WBC 19.9 thou/uL (4.0-11.0)
[2018-12-27 10:54] LABS: CALCIUM 9.6 mg/dL (8.5-10.1); CREATININE 0.8 mg/dL (0.6-1.3); POTASSIUM 3.7 mmol/L (3.5-5.1)
[2018-12-27 10:56] LABS: APTT 32.2 Seconds (25.0-31.3); INR 1.1; PROTIME 11.2 Seconds (9.20-11.50)
--- NOTE | 2018-12-27 11:00 | 2DMMODE ---
[place] [address] 2 D/M-MODE ECHOCARDIOGRAM Name: SARAH CAMPBELL Room: [facility]#: [id number] Admission: 12/27/18 Attend Phys: Lv Gray, Discharge: Date of : 47 Date of Service: 12/27/18 1059 Report #: [id number] THIS REPORT FOR: //name// APPROVED REPORT Study performed: 12/27/2018 09:20:11 EXAM: Comprehensive 2D, Doppler, and color-flow Echocardiogram Patient Location: Out-Patient Status: routine BSA: 1.53 HR: 100 bpm Rhythm: NSR Other Information Study Quality: Good Indications Hypertension/HDD 2D Dimensions IVSd: 14.70 (7-11mm) LVOT Diam: 18.94 (18-24mm) LVDd: 41.33 mm PWd: 12.81 (7-11mm) Ascending Ao: 31.73 (22-36mm) LVDs: 29.16 (25-40mm) Aortic Root: 29.15 mm Volumes Left Atrial Volume (Systole) LA ESV Index: 23.10 mL/m2 Aortic Valve AoV Peak Abrahan.: 2.01 m/s AO Peak Gr.: 16.23 mmHg LVOT Max P.74 mmHg AO Mean Gr.: 9.13 mmHg LVOT Mean P.89 mmHg LVOT Max V: 1.78 m/s AO V2 VTI: 24.94 cm LVOT Mean V: 1.10 m/s RODNEY (VTI): 2.56 cm2 LVOT V1 VTI: 22.69 cm Mitral Valve MV Mean Gr.: 2.11 mmHg E/A Ratio: 0.79 MV Decel. Time: 227.09 ms MV E Max Abrahan.: 0.79 m/[place] [address] 2 D/M-MODE ECHOCARDIOGRAM Name: SARAH CAMPBELL Room: [facility]#: [id number] Admission: 12/27/18 Attend Phys: Lv Gray, Discharge: Date of : 47 Date of Service: 12/27/18 1059 Report #: [id number] MV PHT: 65.86 ms MVA (PHT): 3.34 cm2 TDI E/Lateral E': 8.78 E/Medial E': 11.29 Medial E' Abrahan.: 0.07 m/s Lateral E' Abrahan.: 0.09 m/s Pulmonary Valve PV Peak Abrahan.: 1.49 m/s PV Peak Gr.: 8.93 mmHg Left Ventricle The left ventricle is normal size. There is normal LV segmental wall motion. Mild concentric left ventricular hypertrophy. Small amount of color flow noted across the proximal ventricular septum suggesting a perimembranous VSD with a small amount of left to right shunt. Consider a bubble study. Left ventricular systolic function is hyperdynamic. LVEF is >70%. Grade I - abnormal relaxation pattern. Right Ventricle The right ventricle is normal size. The right ventricular systolic function is normal. Atria The left atrium size is normal. The right atrium size is normal. Aortic Valve Mild aortic valve sclerosis. No aortic regurgitation is present. There is no aortic valvular stenosis. Mitral Valve Moderate mitral annular calcification. There is no mitral valve regurgitation noted. No evidence of mitral valve stenosis. Tricuspid Valve The tricuspid valve is normal in structure. Unable to assess PA pressure. Trace tricuspid regurgitation. Pulmonic Valve The pulmonary valve is normal in structure. There is no pulmonic valvular regurgitation. Great Vessels The aortic root is normal in size. IVC [place] [address] 2 D/M-MODE ECHOCARDIOGRAM Name: SARAH CAMPBELL Room: [facility]#: [id number] Admission: 12/27/18 Attend Phys: Lv Gray, Discharge: Date of : 47 Date of Service: 12/27/18 1059 Report #: [id number] collapses >50% with inspiration. Pericardium There is no pericardial effusion. <Conclusion> Mild concentric left ventricular hypertrophy. LVEF is >70%. Small amount of color flow noted across the proximal ventricular septum suggesting a perimembranous VSD with a small amount of left to right shunt. Consider a bubble study. Mild aortic valve sclerosis. Moderate mitral annular calcification. <ELECTRONICALLY SIGNED> By: Param Low MD, [facility] 12/27/18 1059 1059 1059 Param Low MD, FACC /INF
[2018-12-27 12:12] LABS: BE -1.5 mmol/L (-2 to +3); PCO2 26.2 mmHg (35.0-45.0); PO2 82.6 mmHg (75.0-100.0); pH 7.502 (7.340-7.450)
[2018-12-27 12:19] LABS: HEMATOCRIT 37.9 % (37.0-47.0); MCH 32.5 pg (26.0-34.0); MCHC 34.4 g/dL (28.0-37.0); MCV 94.4 fL (80.0-100.0); MPV 8.8 fl. (7.2-11.1); NUCLEATED RBCS 0 /100WBC; PLATELET COUNT* 234 thou/uL (150-400); RBC 4.02 mil/uL (4.20-5.00); RDW-CV 13.7 % (10.5-14.5); WBC 17.4 thou/uL (4.0-11.0)
[2018-12-27 12:31] LABS: CALCIUM 9.1 mg/dL (8.5-10.1); CREATININE 0.9 mg/dL (0.6-1.3); POTASSIUM 3.6 mmol/L (3.5-5.1)
[2018-12-27 12:35] LABS: ALBUMIN 2.7 g/dL (3.4-5.0); MAGNESIUM 1.8 mg/dL (1.8-2.4); TOTAL BILIRUBIN 0.6 mg/dL (<0.1-1.0); TOTAL PROTEIN 6.6 g/dL (6.4-8.2)
[2018-12-27 13:02] LABS: URINE BILIRUBIN NEGATIVE (Negative); URINE BLOOD NEGATIVE (Negative); URINE CLARITY CLEAR; URINE COLOR YELLOW; URINE GLUCOSE-RANDOM NEGATIVE (Negative); URINE KETONES NEGATIVE (Negative); URINE LEUKOCYTES-REFLEX NEGATIVE (Negative); URINE NITRITE-REFLEX NEGATIVE (Negative); URINE PROTEIN 1+ (Negative); URINE SPECIFIC GRAVITY >= 1.030 (1.005-1.030); URINE UROBILINOGEN 0.2 E.U./dl (0.2-1.0)
[2018-12-27 13:10] LABS: ABSOLUTE MONOCYTES 0.5 thou/uL (0.0-1.2); ABSOLUTE NEUTROPHILS 16.9 thou/uL (1.6-8.1)
[2018-12-27 13:12] LABS: PLATELET ESTIMATE ADEQUATE
[2018-12-27 16:11] VITALS: BP 121/72
== END ==
LOC: M.CRD 08:58 → M.ERS 08:58 → M.CRD 09:00
PROVIDERS: Personal Emergency Response Attendant; Radiology Diagnostic Radiology
DX: R50.9 Fever, unspecified (principal); D72.829 Elevated white blood cell count, unspecified; M32.9 Systemic lupus erythematosus, unspecified; I25.10 Atherosclerotic heart disease of native coronary artery without angina pectoris; I10 Essential (primary) hypertension; M19.90 Unspecified osteoarthritis, unspecified site; Z98.890 Other specified postprocedural states; Z86.711 Personal history of pulmonary embolism; Z86.718 Personal history of other venous thrombosis and embolism; Z95.2 Presence of prosthetic heart valve; Z95.5 Presence of coronary angioplasty implant and graft; Z90.89 Acquired absence of other organs; Z90.49 Acquired absence of other specified parts of digestive tract; Z85.118 Personal history of other malignant neoplasm of bronchus and lung; Z85.05 Personal history of malignant neoplasm of liver; Z85.028 Personal history of other malignant neoplasm of stomach